=== PATIENT | female | born 1985 | race Caucasian/White ===

== ENCOUNTER 2020-05-12 16:21 | Inpatient (IN) | payer OTHER ==
[~2020-05-12] VITALS: Ht 172.7 cm; Wt 124.5 kg
[2020-05-12] MEDS ORDERED: PNV1TABL97 PO (20:25)
[2020-05-12] MEDS ORDERED: LEVO112T4 PO (20:27)
[2020-05-12] MEDS ORDERED: [UNRECOGNIZED DRUG - CODE] PO (20:30)
[2020-05-12] MEDS ORDERED: SODIUM CITRATE/CITRIC ACID 30 ML UDC PO PRN (21:30)
[2020-05-12] MEDS ORDERED: OXYTOCIN 30U/ 0.9% NaCL 500ML 500 ML IV PRN (21:30)
[2020-05-12] MEDS ORDERED: OXYTOCIN 30U/ 0.9% NaCL 500ML 500 ML IV ONE (21:30)
[2020-05-12] MEDS ORDERED: TERBUTALINE 1 MG/ML, 1ML SQ PRN (21:30)
[2020-05-12] MEDS ORDERED: ONDANSETRON 2MG/ML, 2ML IVPush PRN (21:30)
[2020-05-12] MEDS ORDERED: TERBUTALINE 1 MG/ML, 1ML IVPush PRN (21:30)
[2020-05-12] MEDS ORDERED: D5%-LACTATED RINGERS 1,000 ML IV SCH (21:30)
[2020-05-12] MEDS ORDERED: FENTANYL PF 100 MCG/2ML IV PRN (21:30)
[2020-05-12] MEDS ORDERED: LIDOCAINE 1%, 20ML ONE (21:49)
[2020-05-12] MEDS ORDERED: MISOPROSTOL 200 MCG TABLET ONE (21:49)
[2020-05-12] MEDS ORDERED: NEWBORN KIT ONE (21:49)
[2020-05-12 22:19] LABS: BASOPHILS % (AUTO) 1 % (0-1); EOSINOPHILS % (AUTO) 1 % (1-7); LYMPHOCYTES % (AUTO) 14 % (22-44); MD NO; MEAN CORPUSCULAR HEMOGLOBIN 27.1 pg (27.0-34.8); MEAN CORPUSCULAR HGB CONC 33.3 g/dL (32.4-35.8); MEAN PLATELET VOLUME 10.4 fL (7.4-10.4); MONOCYTES % (AUTO) 6 % (2-9); NEUTROPHILS % (AUTO) 79 % (42-75); PLATELET COUNT 188 x10^3/uL (130-400); RED BLOOD COUNT 4.14 x10^6/uL (3.82-5.3); RED CELL DISTRIBUTION WIDTH 13.9 % (9.6-15.2)
[2020-05-12] MEDS ORDERED: MISOPROSTOL 25 MCG TABLET ONE (23:55)
[2020-05-13] MEDS: MISOPROSTOL 25 MCG TABLET VG PRN ×2 (00:01→04:36)
[2020-05-13] MEDS ORDERED: MISOPROSTOL 25 MCG TABLET ONE (04:29)
[2020-05-13] MEDS ORDERED: LEVOTHYROXINE 175 MCG TABLET PO SCH (06:00)
[2020-05-13] MEDS: LEVOTHYROXINE 112 MCG TABLET PO SCH (06:33)
[2020-05-13] MEDS ORDERED: FENTANYL PF 100 MCG/2ML ONE ×3 (08:07→10:06)
[2020-05-13] MEDS: FENTANYL PF 100 MCG/2ML IVPush PRN ×2 (08:10→10:07)
[2020-05-13] MEDS ORDERED: OXYTOCIN 30U/ 0.9% NaCL 500ML 500 ML ONE ×2 (08:56→18:53)
[2020-05-13] MEDS: LACTATED RINGERS 1,000 ML IV SCH ×4 (09:39→19:00)
[2020-05-13] MEDS ORDERED: BUPIVACAINE 0.25% ONE (10:06)
[2020-05-13] MEDS ORDERED: FENTANYL/BUPIV./NS/PF 250 ML EPIDCONT ONE (10:07)
[2020-05-13] MEDS ORDERED: FENTANYL/BUPIV./NS/PF 250 ML EPIDCONT SCH (11:00)
[2020-05-13] MEDS ORDERED: LACTATED RINGERS 1,000 ML IVBOLUS PRN (11:00)
[2020-05-13] MEDS ORDERED: ONDANSETRON 2MG/ML, 2ML ONE (11:20)
[2020-05-13] MEDS ORDERED: MISOPROSTOL 200 MCG TABLET PR PRN (18:30)
[2020-05-13] MEDS ORDERED: ONDANSETRON 2MG/ML, 2ML IV PRN (18:30)
[2020-05-13] MEDS ORDERED: ACETAMINOPHEN 325 MG TABLET PO PRN ×2 (18:30)
[2020-05-13] MEDS ORDERED: IBUPROFEN 600 MG TABLET PO PRN (18:30)
[2020-05-13] MEDS: OXYTOCIN 30U/ 0.9% NaCL 500ML 500 ML IV SCH ×5 (18:30→22:48)
[2020-05-13] MEDS ORDERED: SIMETHICONE 80 MG CHEW TAB PO PRN (18:30)
[2020-05-13] MEDS ORDERED: CALCIUM CARBONATE 500 MG TAB.CHEW PO PRN (18:30)
[2020-05-13] MEDS ORDERED: DOCUSATE 100 MG CAPSULE PO PRN (18:30)
[2020-05-13] MEDS ORDERED: HYDROcodone/APAP 5/325 TABLET PO PRN ×2 (18:30)
[2020-05-13] MEDS ORDERED: BISACODYL 10 MG SUPP PR PRN (18:30)
[2020-05-13] MEDS ORDERED: IBUPROFEN 600 MG TABLET ONE (18:53)
[2020-05-13] MEDS ORDERED: IBUPROFEN 100 MG/5 ML UDC PO PRN (19:30)
[2020-05-13] MEDS ORDERED: ACETAMINOPHEN 650 MG/20.3 ML UDC PO PRN ×2 (19:30)
[2020-05-13] MEDS ORDERED: DOCUSATE 50 MG/5 ML, 10ML UDC PO PRN (19:30)
[2020-05-13 20:00] VITALS: BP 106/60
[2020-05-13] MEDS ORDERED: HYDROcodone/APAP 7.5-325MG/15ML UDC PO PRN (20:00)
[2020-05-13] MEDS: HYDROcodone/APAP 7.5-325MG/15ML UDC PO PRN ×3 (20:56→21:40)
[2020-05-14] MEDS: OXYTOCIN 30U/ 0.9% NaCL 500ML 500 ML IV SCH ×6 (00:14→01:43)
[2020-05-14] MEDS: LACTATED RINGERS 1,000 ML IV SCH (01:38)
[2020-05-14 02:16] LABS: BASOPHILS % (AUTO) 1 % (0-1); EOSINOPHILS % (AUTO) 0 % (1-7); LYMPHOCYTES % (AUTO) 11 % (22-44); MEAN CORPUSCULAR HEMOGLOBIN 27.1 pg (27.0-34.8); MEAN CORPUSCULAR HGB CONC 32.6 g/dL (32.4-35.8); MEAN PLATELET VOLUME 10.3 fL (7.4-10.4); MONOCYTES % (AUTO) 7 % (2-9); NEUTROPHILS % (AUTO) 82 % (42-75); PLATELET COUNT 172 x10^3/uL (130-400); RED BLOOD COUNT 3.67 x10^6/uL (3.82-5.3); RED CELL DISTRIBUTION WIDTH 13.8 % (9.6-15.2)
[2020-05-14 02:18] LABS: MD NO
[2020-05-14 03:45] VITALS: BP 80/64
[2020-05-14 04:19] VITALS: BP 100/62
[2020-05-14] MEDS: LEVOTHYROXINE 112 MCG TABLET PO SCH (05:52)
[2020-05-14 07:10] VITALS: BP_SYST 107
[2020-05-14] MEDS ORDERED: PRENATAL VIT/IRON/FA 1 EACH TABLET PO SCH (09:00)
[2020-05-14] MEDS ORDERED: DOCUSATE 100 MG CAPSULE ONE (09:23)
[2020-05-14] MEDS ORDERED: HYDROcodone/APAP 7.5-325MG/15ML UDC ONE (09:25)
[2020-05-14] MEDS: HYDROcodone/APAP 7.5-325MG/15ML UDC PO PRN ×3 (09:31→18:32)
[2020-05-14 12:20] VITALS: BP 95/57
[2020-05-14 16:45] VITALS: BP 106/54
== END 2020-05-14 19:00 | disposition home or self-care (01) | DRG 807 ==
LOC: LDIP 21:12 → 2NW 05-13 19:59
PROVIDERS: ADMIT Obstetrics & Gynecology; ATTEND Obstetrics & Gynecology
PROC: 10E0XZZ Delivery of Products of Conception, External Approach (ICD-10-PCS; principal; 2020-05-13)
PROC: 0KQM0ZZ Repair Perineum Muscle, Open Approach (ICD-10-PCS; 2020-05-13)
PROC: 3E0R3BZ Introduction of Anesthetic Agent into Spinal Canal, Percutaneous Approach (ICD-10-PCS; 2020-05-13)
PROC: 00HU33Z Insertion of Infusion Device into Spinal Canal, Percutaneous Approach (ICD-10-PCS; 2020-05-13)
DX: O76 Abnormality in fetal heart rate and rhythm complicating labor and delivery (principal); Z37.0 Single live birth; O99.284 Endocrine, nutritional and metabolic diseases complicating childbirth; E03.9 Hypothyroidism, unspecified; E66.01 Morbid (severe) obesity due to excess calories; Z3A.39 39 weeks gestation of pregnancy; Z20.828 Contact with and (suspected) exposure to other viral communicable diseases; Z87.440 Personal history of urinary (tract) infections; O70.1 Second degree perineal laceration during delivery; O99.214 Obesity complicating childbirth
CPT/HCPCS: 36415; 85025; 86592; 86850; 86900; 87635; G0378; J2405; J3010; J2590; J7120

== ENCOUNTER → 2020-08-24 | Outpatient (CLI) | payer OTHER ==
[~2020-08-24] MED LIST: GADOTERATE 10 MMOL/20 ML VIAL ONE; LEVO112T4 PO; PNV1TABL97 PO; [UNRECOGNIZED DRUG - CODE] PO
== END | disposition home or self-care (01) ==
LOC: CFH 11:29
PROVIDERS: ATTEND Obstetrics & Gynecology
DX: N60.42 Mammary duct ectasia of left breast (principal); N60.41 Mammary duct ectasia of right breast; Z80.3 Family history of malignant neoplasm of breast
CPT/HCPCS: 77049; A9575; C8908